=== PATIENT | male | born 1950 | race Caucasian/White ===

== ENCOUNTER 2017-08-17 09:56 | Inpatient (IN) | payer MEDICARE ==
[~2017-08-17] VITALS: Ht 188 cm; Wt 87.8 kg
[~2017-08-17 09:56] MED LIST: COQ-100C5 PO; RED1CAP4 PO
[2017-08-17] MEDS ORDERED: POVIDONE IODINE 5% (ANTISEPSIS KIT) 4 APPLICATIONS EACH NARE PRN (10:30)
[2017-08-17] MEDS ORDERED: SODIUM CHLORID 0.9% 500 ML IV PRN (10:30)
[2017-08-17] MEDS ORDERED: CHLORHEXIDINE GLUCONATE 2 % 1 PACK (2 CLOTHS) TOPICAL PRN (10:30)
[2017-08-17] MEDS ORDERED: INSULIN HUMAN REGULAR 1,000 UNITS/10 ML VIAL SQ PRN (10:30)
[2017-08-17] MEDS ORDERED: ceFAZolin 2 GM PREMIX 50 ML IV SCH (10:30)
[2017-08-17] MEDS ORDERED: METOPROLOL TARTRATE 25 MG TAB PO PRN (10:30)
[2017-08-17] MEDS ORDERED: LACTATED RINGER'S 1000 ML IV PRN (10:30)
[2017-08-17 10:48] LABS: INTERNATIONAL NORMALIZED RATIO 1.1 RATIO
[2017-08-17] MEDS ORDERED: PROPOFOL 200 MG/20 ML AMP IV ONE (12:00)
[2017-08-17] MEDS ORDERED: ROCURONIUM INJ 50 MG/5 ML SYRINGE IV PUSH ONE (12:00)
[2017-08-17] MEDS ORDERED: LIDOCAINE HCL 1% PF 5 ML SYRINGE OTHER ONE (12:00)
[2017-08-17] MEDS ORDERED: GLYCOPYRROLATE 1 MG/5 ML SYRINGE IV PUSH ONE (12:00)
[2017-08-17] MEDS ORDERED: NEOSTIGMINE 5 MG/5 ML SYRINGE IV PUSH ONE (12:00)
[2017-08-17] MEDS ORDERED: VECURONIUM BROMIDE 20 MG VIAL IV ONE (12:00)
[2017-08-17] MEDS ORDERED: NORMOSOL R INJ 1,000 ML IV ONE (12:00)
[2017-08-17] MEDS ORDERED: LACTATED RINGER'S 1000 ML INJ 1,000 ML IV ONE (12:00)
[2017-08-17] MEDS ORDERED: ePHEDrine/NS 25 MG/5 ML SYRINGE IV ONE (12:00)
[2017-08-17] MEDS ORDERED: ONDANSETRON HCL 4 MG/2 ML VIAL IV ONE (12:00)
[2017-08-17] MEDS ORDERED: ceFAZolin INJ 1,000 MG VIAL IV ONE (12:00)
[2017-08-17] MEDS ORDERED: PHENYLEPH/NS 1000 MCG/10 ML SYR IV ONE (12:00)
[2017-08-17] MEDS ORDERED: DEXAMETHASONE SOD PHOS 4 MG/ML VIAL IV ONE (12:00)
[2017-08-17] MEDS ORDERED: ACETAMINOPHEN 1000 MG/100 ML 100 ML IV ONE (14:55)
[2017-08-17] MEDS ORDERED: FAMOTIDINE 20 MG/2 ML VIAL ONE (15:36)
[2017-08-17] MEDS ORDERED: SUGAMMADEX SODIUM 200 MG/2 ML VIAL IV PUSH ONE (18:15)
[2017-08-17] MEDS ORDERED: MIDAZOLAM HCL 2 MG/2 ML VIAL ONE (19:15)
[2017-08-17] MEDS ORDERED: ceFAZolin INJ 1,000 MG VIAL ONE (20:36)
[2017-08-17] MEDS ORDERED: MORPHINE SULFATE 4 MG/ML INJ IV PUSH PRN (21:15)
[2017-08-17] MEDS: DOCUSATE SODIUM 100 MG CAP PO SCH (21:15)
[2017-08-17] MEDS ORDERED: ONDANSETRON HCL 4 MG/2 ML VIAL IV PUSH PRN (21:15)
--- NOTE | 2017-08-17 21:16 | HHI.PR ---
Immediate Post Op Note Procedure Date: Aug 17, 2017 Pre Op Diagnosis: Prostate Cancer Post Op Diagnosis: same Surgeon: Ciaran Chua Jd Edwards Consultant(s): Michael Calixto MD. Procedure: Robotic Assisted Laparoscopic Radical Prostatectomy with Bilateral Pelvic Lymph Node Dissection. Complications: none Specimen(s) removed: Prostate, SVs, Lymph Nodes, posterior margin Estimated blood loss: 250 ml. Anesthesia: General Drains: ANTIONE IVF Patient to: PACU Patient Condition: Ciaran Guzmán MD Aug 17, 2017 21:16
[2017-08-17] MEDS ORDERED: DO NOT ADM ANY ANTICOAGULANT DRUGS PRN (21:45)
[2017-08-17] MEDS ORDERED: MORPHINE SULFATE 4 MG/ML INJ ONE (22:02)
[2017-08-17] MEDS ORDERED: *morphine SULFATE 8 MG/ML PERIprocedure ONLY ONE (22:18)
[2017-08-17 22:22] LABS: AUTOMATED NEUTROPHIL # 12.3 TH/MM3 (1.8-7.7); BASOPHIL % 0.2 % (0.0-2.0); EOSINOPHIL % 0.3 % (0.0-4.0); HEMATOCRIT 45.3 % (39.0-51.0); HEMOGLOBIN 15.3 GM/DL (13.0-17.0); LYMPHOCYTE # 1.1 TH/MM3 (1.0-4.8); MEAN CELL VOLUME 84.3 FL (80.0-100.0); MEAN CORPUSCULAR HEMOGLOBIN 28.4 PG (27.0-34.0); MEAN CORPUSCULAR HGB CONC 33.7 % (32.0-36.0); MEAN PLATELET VOLUME 8.6 FL (7.0-11.0); MONO % 4.5 % (0.0-8.0); MONOCYTE # 0.6 TH/MM3 (0-0.9); PLATELET COUNT 179 TH/MM3 (150-450); RED BLOOD COUNT 5.37 MIL/MM3 (4.50-5.90); RED CELL DISTRIBUTION WIDTH 14.5 % (11.6-17.2); WHITE BLOOD COUNT 14.2 TH/MM3 (4.0-11.0)
[2017-08-17 22:34] LABS: BICARBONATE 25.9 MEQ/L (21.0-32.0); CALCIUM 8.3 MG/DL (8.5-10.1); CREATININE 1.26 MG/DL (0.60-1.30)
[2017-08-17] MEDS: SODIUM CHLOR 0.9% 1000 ML INJ 1,000 ML IV SCH (22:45)
[2017-08-18] VITALS (7 sets, daily range): BP systolic 99–139; BP diastolic 57–88; PULSE 71–111; RESP 16–18; TEMP 96–98.4; O2SAT 94–97
[2017-08-18] MEDS: KETOROLAC TROMETHAMINE 30 MG/ML (IVP) VIAL IV PUSH SCH ×4 (01:14→17:55)
[2017-08-18] MEDS: PANTOPRAZOLE SODIUM 40 MG VIAL IV PUSH SCH ×2 (01:15→21:56)
[2017-08-18] MEDS: SODIUM CHLOR 0.9% 1000 ML INJ 1,000 ML IV SCH ×3 (06:06→17:15)
--- NOTE | 2017-08-18 08:19 | HHI.PR ---
Subjective Patient symptoms today c/o lower abdominal pain, but controlled with meds. Denies N/V/CP/SOB. Denies flatus. Has not been OOB Objective Vital Signs Vital Signs Date Time Temp Pulse Resp B/P (MAP) Pulse Ox O2 Delivery O2 Flow Rate FiO2 08/18/17 08:00 97.9 92 18 105/64 (78) 97 08/18/17 03:35 97.5 101 18 125/79 (94) 95 08/18/17 01:02 96.7 111 18 139/88 (105) 94 08/18/17 00:15 97.9 103 18 155/89 (111) 95 Nasal Cannula 2 08/18/17 00:00 96 14 156/89 (111) 97 Nasal Cannula 2 08/17/17 23:45 93 16 119/63 (81) 99 Nasal Cannula 2 08/17/17 23:30 102 18 156/87 (110) 96 Nasal Cannula 2 08/17/17 23:15 101 14 142/96 (111) 98 Nasal Cannula 2 08/17/17 23:00 98 12 156/89 (111) 100 Nasal Cannula 2 08/17/17 22:45 93 16 158/82 (107) 95 Nasal Cannula 2 08/17/17 22:30 87 14 148/82 (104) 91 Nasal Cannula 2 08/17/17 22:15 91 17 158/81 (106) 100 Nasal Cannula 2 08/17/17 22:00 84 16 137/78 (97) 96 Nasal Cannula 2 08/17/17 21:45 98.6 75 16 118/68 (85) 95 Nasal Cannula 2 08/17/17 10:40 98.3 97 20 169/103 (125) 98 Intake & Output 08/18/17 08/18/17 07:00 19:00 Intake Total 3160 ml Output Total 1190 ml Balance 1970 ml Intake Oral 360 ml IV Total 300 ml Other 2500 ml Output Urine Total 605 ml Drainage Total 285 ml Estimated Blood Loss 300 ml # Bowel Movements 0 Result Diagram: 08/17/17221008/17/172210 Objective Remarks NAD. A/O x 3 CTAB RRR abd soft, appropriate tender, distended. Inc c/d/i Acosta draining dark yellow, urine. ANTIONE sanguinous drainage. EXT NT. No edema. EPC cuffs on and working Medications and IVs Current Medications Medications (Trade) Dose Ordered Sig/Gloria Route Start Time Stop Time Status Last Admin Lactated Ringer's 1,000 ml @ 30 mls/hr Q24H PRN IV 08/17/17 10:30 08/20/17 10:29 08/17/17 10:48 Sodium Chloride 500 ml @ 30 mls/hr [id number] PRN IV 08/17/17 10:30 08/20/17 10:29 (Lopressor) 25 mg CLOTH SECONDS SORTER PRN PO 08/17/17 10:30 08/20/17 10:29 (Betadine 5% Antisepsis Kit) 1 applic CLOTH SECONDS SORTER PRN EACH NARE 08/17/17 10:30 08/20/17 10:29 08/17/17 10:45 (Chlorhexidine 2% Cloth) 3 pack CLOTH SECONDS SORTER PRN TOPICAL 08/17/17 10:30 08/20/17 10:29 08/17/17 10:30 (NovoLIN R INJ) See Protocol Table ... CLOTH SECONDS SORTER PRN SQ 08/17/17 10:30 08/20/17 10:29 Cefazolin Sodium/ Dextrose 50 ml @ 150 mls/hr CLOTH SECONDS SORTER IV 08/17/17 10:30 08/20/17 10:29 08/17/17 16:39 (Colace) 100 mg BID PO 08/17/17 21:15 (Percocet 5-325 Mg) 2 tab Q4H PRN PO 08/17/17 21:15 (Percocet 5-325 Mg) 1 tab Q4H PRN PO 08/17/17 21:15 (Zofran Inj) 4 mg Q6HR PRN IV PUSH 08/17/17 21:15 (Protonix Inj) 40 mg Q24H IV PUSH 08/17/17 23:00 08/18/17 01:15 (Toradol Inj) 30 mg Q6HR IV PUSH 08/18/17 00:00 08/22/17 18:01 08/18/17 06:06 (Morphine Inj) 4 mg Q3H PRN IV PUSH 08/17/17 21:15 Cefazolin Sodium 1000 mg/Sodium Chloride 100 ml @ 200 mls/hr Q8H IV 08/18/17 00:00 08/18/17 08:29 08/18/17 01:14 Sodium Chloride 1,000 ml @ 150 mls/hr Q6H40M IV 08/17/17 21:15 08/18/17 06:06 Miscellaneous Information ALL NURSING DEPARTME... UNSCH PRN .XX 08/17/17 21:45 08/18/17 21:44 Assessment and Plan Assessment and Plan POD #1 s/p Robotic Prostatectomy -Check labs -Monitor UOP. -ANTIONE Creatinine noted. Will repeat in A.M. -OOB today -continue clears. -DVT/GI prophylaxis Ciaran Chua MD Aug 18, 2017 08:19
[2017-08-18] MEDS ORDERED: RED YEAST RICE EXTRACT PO SCH (09:00)
[2017-08-18] MEDS ORDERED: COENZYME Q10 PO SCH (09:00)
[2017-08-18] MEDS: DOCUSATE SODIUM 100 MG CAP PO SCH ×2 (09:00→21:56)
[2017-08-18 09:23] LABS: HEMATOCRIT 42.1 % (39.0-51.0); HEMOGLOBIN 14.5 GM/DL (13.0-17.0); MEAN CELL VOLUME 83.9 FL (80.0-100.0); MEAN CORPUSCULAR HEMOGLOBIN 28.8 PG (27.0-34.0); MEAN CORPUSCULAR HGB CONC 34.4 % (32.0-36.0); MEAN PLATELET VOLUME 8.7 FL (7.0-11.0); PLATELET COUNT 175 TH/MM3 (150-450); RED BLOOD COUNT 5.02 MIL/MM3 (4.50-5.90); RED CELL DISTRIBUTION WIDTH 14.4 % (11.6-17.2); WHITE BLOOD COUNT 10.5 TH/MM3 (4.0-11.0)
[2017-08-18 09:49] LABS: BICARBONATE 25.9 MEQ/L (21.0-32.0); CALCIUM 7.6 MG/DL (8.5-10.1); CREATININE 1.15 MG/DL (0.60-1.30)
--- NOTE | 2017-08-18 14:43 | MP ---
cc: Ciaran Chua MD DATE OF OPERATION: 08/17/2017 PREOPERATIVE DIAGNOSIS: Intermediate Reinaldo 3 + 4 = 7 prostate cancer. POSTOPERATIVE DIAGNOSIS: Intermediate Reinaldo 3 + 4 = 7 prostate cancer. PROCEDURE PERFORMED: Robotic assisted laparoscopic radical prostatectomy with bilateral pelvic lymph node dissection. SURGEON: Ciaran Chua MD LINE MAINTENANCE: Michael Calixto ANESTHESIA: General COMPLICATIONS: None. PREOPERATIVE ANTIBIOTICS: Ancef 2 gm IV DRAINS: 1. ANTIONE drain. 2. A 20 [place] Acosta catheter to gravity drainage. SPECIMENS: 1. Prostate and seminal vesicles. 2. Right obturator lymph nodes. 3. Left obturator lymph nodes. 4. Posterior margin. BLOOD LOSS: 200 mL. FLUIDS: 1500 per crystalloids. DISPOSITION: Stable to recovery. INDICATIONS: The patient is a 67-year-old male with an elevated PSA. He underwent a prostate biopsy which was found to have 3 + 4 = 7 prostate cancer by my partner Dr. Nabor Leonardo. Treatment was discussed and he was referred for a robotic prostatectomy. The patient had a prostate MRI done preoperatively for surgery planning and he was found to have a PI-RADS 5 lesion in left mid and apex in the lateral gland approximately 2.7 cm. Due to these findings he elected to proceed with robotic prostatectomy and bilateral pelvic lymph node dissection. After the risks, benefits and alternatives were explained the patient agreed to the risk of erectile dysfunction, urinary incontinence, elected to proceed and informed consent was obtained. DESCRIPTION OF THE PROCEDURE: The patient was properly identified, brought back to the operating room, laid supine on the operating room table. Appropriate time out was performed under the direction of anesthesiology. The patient was induced under general anesthetic. Preop antibiotics of Ancef 2 gm IV were given within one hour of start of the procedure. The patient was then placed in the dorsolithotomy position and steep Trendelenburg. All pressure points were padded. He was then prepped and draped in normal sterile surgical fashion. A stab incision was made just lateral superior to umbilicus on the patient's right side. A Veress needle was then used to gain pneumoperitoneum. A 12 mm camera port was then carefully placed without any incident into the abdominal cavity. The camera was then used to inspect the abdominal cavity. There was no evidence of any intraabdominal injury or bleeding. At this time 5 other ports were then placed under direct visualization including two 8 mm robotic ports were placed on the patient's left hand side a hand breadth away from each other starting from the camera port in the midline. A 12 mm security assistant port was the placed in the right side two fingerbreadths seuprior to ASIS, an 8 mm robotic port that was placed a handbreadth away from the camera port triangulated between the 8 mm right hand robotic port and the camera port. The was properly positioned and docked. The bladder was then taken down in standard fashion starting on the right hand side by getting into the retropubic space. Left side of the bladder was taken down. The periprostatic fat was then removed and ligated the superficial DBC stitch with electrocautery. At this time I then entered the endopelvics on each side bluntly and carefully dissected up toward the apex of the prostate. In doing so I was able to remove the pelvic musculature off the prostate to delineate the borders of the prostate. There was an accessory obturator vessel on the right side which was ligated with electrocautery. The ____ were taken with cold cut scissors. The DBC stitch was ligated with 0 V-Loc stitch and secured through the pubic symphysis. I then performed the dissection of the anterior bladder neck and entered the urethra. The patient did have a small median lobe. This was carefully dissected out. Both orifices were identified and appeared more posterior in the bladder. Again I developed a plane between the prostate and the bladder through Denonvilliers facia until the seminal vesicles were seen. There was no holding up the bladder. Posterior bladder wall was quite thick. A seminal vesicle was then carefully dissected all the out to the tip. The vas was ligated on each side. The posterior plane was then developed. It was rather stuck and inflamed on the left side near the location corresponding to the tumor on MRI. There is some significant bleeding at these pedicles. Each pedicle was taken with a combination of Hem-o-sonia clips and the robotic vessel sealer as the patient already had a history of erectile dysfunction. I then marched up toward the apex of the prostate, however, due to the quite large size of his prostate, which was approximately 75 gm, made the posterior dissection toward the apex quite difficult. At this point I used electrocautery to go anteriorly and divide the previously ligated DBC stitch. This the anterior portion of the prostate to the urethra. I divided the urethra with a cold cut scissors. The retrourethralis was divided as wall and at this point the inferior portion of the rectum was still stuck on the prostate. I carefully dissected the prostate off retrograde from rectum. The prostate was then placed in the pericolic gutter for later removal. Hemostasis was then achieved in the prostatic fossa. At this time a digital rectal exam was done and the rectum wall seemed thin but there was no obvious rectal injury. A red rubber catheter was then placed in the rectum. 300 mL of sterile water was placed in the prostatic fossa. The air was then irrigated through the red rubber catheter into the rectum. No bubbles were seen. The rectal wall was intact. The fluid was removed. Bilateral pelvic lymph node dissection was done in standard fashion. The obturator nerve was identified on each side. The lymph nodes were then stripped down off the obturator. Each nerve remained intact. These node packets were sent off separately. At this time a watertight anastomosis was done with the urethra and bladder using a double armed 4-0 Stratafix suture. The posterior portion of the urethra was ran first with the posterior portion of the bladder and both ends were met in the middle at 12 o'clock position. A new 20 [place] Acosta catheter was then placed and was visually seen going into the bladder. It was then secured with 20 mL of normal saline. 1 gram of Geo was then used for hemostatic purposes. The bladder was irrigated. No evidence of any leak was seen. At this time the third arm was then removed. A 10 [place] ANTIONE drain was then placed into abdominal cavity. It was secured with a 3-0 nylon. The prostate was then placed in EndoCatch bag and was extracted through the midline incision after extending to approximately 3 cm. It was closed with a running 0 Vicryl. All skin incisions then closed with 4-0 Monocryls. Sponge and needle counts were correct at the end of the case. This concluded the procedure. The patient was extubated and send to recovery room in stable condition and will be transferred to the floor for routine postoperative care. Ciaran Chua MD EMF/rt , 09:29 PM , 11:00 PM
[2017-08-18] MEDS: oxyCODONE/ACETAMINOPHEN 5 MG/325 MG TAB PO PRN (17:54)
[2017-08-19] MEDS: KETOROLAC TROMETHAMINE 30 MG/ML (IVP) VIAL IV PUSH SCH ×2 (00:01→05:36)
[2017-08-19 04:30] VITALS: BP 100/60; PULSE 82; RESP 18; TEMP 97.6; O2SAT 96
[2017-08-19] MEDS: oxyCODONE/ACETAMINOPHEN 5 MG/325 MG TAB PO PRN ×4 (06:24→20:23)
[2017-08-19] MEDS: SODIUM CHLOR 0.9% 1000 ML INJ 1,000 ML IV SCH (07:33)
[2017-08-19 07:51] VITALS: BP 117/67; PULSE 79; RESP 18; TEMP 97.3; O2SAT 94
[2017-08-19] MEDS: DOCUSATE SODIUM 100 MG CAP PO SCH ×2 (09:33→20:22)
[2017-08-19 12:00] VITALS: BP 123/70; PULSE 80; RESP 17; TEMP 97.2; O2SAT 94
--- NOTE | 2017-08-19 13:45 | HHI.PR ---
Subjective Patient symptoms today POD # 2 s/p robotic prostatectomy. No acute events overnight, Pain is controlled, no f/c/n/v, Labs are stable. Ambulating without issues. Diet was advanced to regular and he tolerates it well. Reyes is in place, draining very light pink urine. No new c/o today ANTIONE Cr is normal and ANTIONE drain was removed today. + belching, No flatus yet Objective Vital Signs Vital Signs Date Time Temp Pulse Resp B/P (MAP) Pulse Ox O2 Delivery O2 Flow Rate FiO2 08/19/17 12:17 18 08/19/17 07:51 97.3 79 18 117/67 (84) 94 08/19/17 04:30 97.6 82 18 100/60 (73) 96 08/18/17 23:31 98.3 71 18 99/57 (71) 95 08/18/17 19:30 98.4 82 16 103/62 (76) 96 08/18/17 16:20 96.0 92 18 110/62 (78) 97 Intake & Output 08/19/17 08/19/17 07:00 19:00 Intake Total 720 ml Output Total 1130 ml 30 ml Balance -410 ml -30 ml Intake Oral 720 ml Output Urine Total 1100 ml Drainage Total 30 ml 30 ml # Bowel Movements 0 Result Diagram: 08/18/17 0855 08/18/17 0855 Objective Remarks NAD. A/O x 3 CTAB RRR abd soft, appropriate tender, distended. Inc c/d/i Reyes draining light pink urine Medications and IVs Current Medications Medications (Trade) Dose Ordered Sig/Gloria Route Start Time Stop Time Status Last Admin Lactated Ringer's 1,000 ml @ 30 mls/hr Q24H PRN IV 08/17/17 10:30 08/20/17 10:29 08/17/17 10:48 Sodium Chloride 500 ml @ 30 mls/hr [id number] PRN IV 08/17/17 10:30 08/20/17 10:29 (Lopressor) 25 mg LIQUOR MAKER PRN PO 08/17/17 10:30 08/20/17 10:29 (Betadine 5% Antisepsis Kit) 1 applic LIQUOR MAKER PRN EACH NARE 08/17/17 10:30 08/20/17 10:29 08/17/17 10:45 (Chlorhexidine 2% Cloth) 3 pack LIQUOR MAKER PRN TOPICAL 08/17/17 10:30 08/20/17 10:29 08/17/17 10:30 (NovoLIN R INJ) See Protocol Table ... LIQUOR MAKER PRN SQ 08/17/17 10:30 08/20/17 10:29 Cefazolin Sodium/ Dextrose 50 ml @ 150 mls/hr LIQUOR MAKER IV 08/17/17 10:30 08/20/17 10:29 08/17/17 16:39 (Colace) 100 mg BID PO 08/17/17 21:15 08/19/17 09:33 (Percocet 5-325 Mg) 2 tab Q4H PRN PO 08/17/17 21:15 08/19/17 11:17 (Percocet 5-325 Mg) 1 tab Q4H PRN PO 08/17/17 21:15 08/19/17 06:24 (Zofran Inj) 4 mg Q6HR PRN IV PUSH 08/17/17 21:15 (Protonix Inj) 40 mg Q24H IV PUSH 08/17/17 23:00 08/18/17 21:56 (Morphine Inj) 4 mg Q3H PRN IV PUSH 08/17/17 21:15 Assessment and Plan Assessment and Plan POD #2 s/p Robotic Prostatectomy - Recovering well - Keep reyes Monitor UOP. -ANTIONE removed -continue ambulation and IS - Continue reg diet -DVT/GI prophylaxis - Poss D/C tomorrow Matthew Carter Aug 19, 2017 13:45
[2017-08-19 16:00] VITALS: BP 118/70; PULSE 78; RESP 18; TEMP 98.3; O2SAT 95
[2017-08-19 16:20] VITALS: BP 110/67; PULSE 78; RESP 14; TEMP 97.7; O2SAT 97
[2017-08-19 20:05] VITALS: BP 139/78; PULSE 80; RESP 14; TEMP 98.4; O2SAT 96
[2017-08-19] MEDS: PANTOPRAZOLE SODIUM 40 MG VIAL IV PUSH SCH (22:23)
[2017-08-20 00:20] VITALS: BP 142/83; PULSE 78; RESP 17; TEMP 97.7; O2SAT 97
[2017-08-20] MEDS: oxyCODONE/ACETAMINOPHEN 5 MG/325 MG TAB PO PRN ×3 (05:21→14:17)
[2017-08-20 07:28] VITALS: BP 137/83; PULSE 82; RESP 19; TEMP 96.6; O2SAT 95
[2017-08-20] MEDS: DOCUSATE SODIUM 100 MG CAP PO SCH (08:45)
[2017-08-20 11:21] VITALS: BP 159/78; PULSE 85; RESP 19; TEMP 95.9; O2SAT 95
[2017-08-20] MEDS ORDERED: OXYC1TAB63 PO (12:36)
[2017-08-20] MEDS ORDERED: CIPR-9 PO (12:36)
[2017-08-20] MEDS ORDERED: DOCU1CAP39 PO (12:36)
[2017-08-20] MEDS ORDERED: MIRA3350 PO (12:36)
--- NOTE | 2017-08-20 12:40 | HHI.DS ---
Discharge Summary Admission Date Aug 18, 2017 at 00:58 Discharge Date: Aug 20, 2017 Admitting Diagnosis Prostate Cancer Procedures Robotic Radical Prostatectomy with Lymph Node Dissection CBC/BMP: 08/18/17 0855 08/18/17 0855 Significant Findings Laboratory Tests Test 08/17/17 22:11 08/18/17 04:40 08/18/17 08:55 08/19/17 05:40 White Blood Count 14.2 TH/MM3 (4.0-11.0) Neutrophils (%) (Auto) 87.0 % (16.0-70.0) Lymphocytes (%) (Auto) 8.0 % (9.0-44.0) Neutrophils # (Auto) 12.3 TH/MM3 (1.8-7.7) Random Glucose 141 MG/DL (74-106) 108 MG/DL (74-106) Calcium Level 8.3 MG/DL (8.5-10.1) 7.6 MG/DL (8.5-10.1) Estimat Glomerular Filtration Rate 57 ML/MIN (>89) 64 ML/MIN (>89) Hospital Course 67 yo male h/o CaP was admitted following a Robotic Prostatectomy. He had a mild post operative ileus. His hemoglobin was stable. His ANTIONE drain had low output. It was serum so it was removed. He was tolerating a regular diet and POd # 2 and starting passing flatus. He was discharged home with catheter on POD #3. Pt Condition on Discharge: Fair Discharge Disposition: Discharge Home Discharge Instructions DIET: Follow Instructions for: Heart Healthy Diet Activities you can perform: Full Weight Bearing, Shower Only-No Bath Additional Activity Instructio: No heavylifting greater than 15 lbs x 4 weeks No strenuous activity x 4 weeks No driving x 2 weeks New Medications: Ciprofloxacin (Cipro) 500 Mg Tab 500 MG PO BID for Infection for 3 Days, #6 TAB 0 Refills Polyethylene Glycol 3350 Powder (Miralax Powder) 17 Gm Powd 17 GM PO DAILY PRN for CONSTIPATION for 5 Days, #1 CAN 0 Refills Mix and dissolve one measuring cap-ful (17 grams) in water or juice. Docusate Sodium (Dok) 100 Mg Cap 100 MG PO BID PRN for CONSTIPATION for 10 Days, #20 CAP Oxycodone HCl/Acetaminophen (Oxycodone-Acetaminophen 5-325) 5 Mg-325 Mg Tablet 2 TAB PO Q4H PRN for PAIN SCALE 7 TO 10 for 7 Days, #84 TAB Continued Medications: Coenzyme Q10 (Ubidecarenone) (Coq-10 Tr) 100 Mg Cap 1 TAB PO DAILY Red Yeast Rice Extract (Red Yeast Rice) 600 Mg Cap 1 CAP PO DAILY Ciaran Chua MD Aug 20, 2017 12:40
--- NOTE | 2017-08-20 12:41 | HHI.PR ---
Subjective Patient symptoms today feel better. pain controlled. Passing flatus. Denies CP/SOB. tolerating regular diet. Ambulating. Wants to go home. Objective Vital Signs Vital Signs Date Time Temp Pulse Resp B/P (MAP) Pulse Ox O2 Delivery O2 Flow Rate FiO2 08/20/17 11:21 95.9 85 19 159/78 (105) 95 08/20/17 07:28 96.6 82 19 137/83 (101) 95 08/20/17 00:20 97.7 78 17 142/83 (102) 97 08/19/17 20:05 98.4 80 14 139/78 (98) 96 08/19/17 17:07 18 08/19/17 16:20 97.7 78 14 110/67 (81) 97 08/19/17 16:00 98.3 78 18 118/70 (86) 95 Intake & Output 08/20/17 08/20/17 07:00 19:00 Intake Total 600 ml Output Total 1500 ml Balance -900 ml Intake Oral 600 ml Output Urine Total 1500 ml # Bowel Movements 0 Result Diagram: 08/18/17 0855 08/18/17 0855 Objective Remarks NAD. A/O x 3 CTAB RRR abd soft, appropriate tender, distended. Inc c/d/i Reyes draining light pink urine EXT NT. some mild right foot edema, pitting in nature. Medications and IVs Current Medications Medications (Trade) Dose Ordered Sig/Gloria Route Start Time Stop Time Status Last Admin (Colace) 100 mg BID PO 08/17/17 21:15 08/20/17 08:45 (Percocet 5-325 Mg) 2 tab Q4H PRN PO 08/17/17 21:15 08/20/17 09:23 (Percocet 5-325 Mg) 1 tab Q4H PRN PO 08/17/17 21:15 08/19/17 06:24 (Zofran Inj) 4 mg Q6HR PRN IV PUSH 08/17/17 21:15 (Protonix Inj) 40 mg Q24H IV PUSH 08/17/17 23:00 08/19/17 22:23 (Morphine Inj) 4 mg Q3H PRN IV PUSH 08/17/17 21:15 Assessment and Plan Assessment and Plan POD #3 s/p Robotic Prostatectomy -doing well -D/C home today with reyes -F/U in 7-10 days with cystogram prior. Office to arrange. Ciaran Chua MD Aug 20, 2017 12:41
== END 2017-08-20 15:42 | disposition home or self-care (01) | DRG 707 ==
LOC: HSDC 09:56 → N06B 10:19 → EDSTATUS 12:30 → N06B 08-18 00:58 → UNDOADMIN 08-18 00:58 → UNDODISIN 08-20 15:42
PROVIDERS: ADMIT Urology; ATTEND Urology
PROC: 07BC4ZZ Excision of Pelvis Lymphatic, Percutaneous Endoscopic Approach (ICD-10-PCS; 2017-08-17)
PROC: 8E0W4CZ Robotic Assisted Procedure of Trunk Region, Percutaneous Endoscopic Approach (ICD-10-PCS; 2017-08-17)
PROC: 0VT04ZZ Resection of Prostate, Percutaneous Endoscopic Approach (ICD-10-PCS; principal; 2017-08-17 15:54)
DX: C61 Malignant neoplasm of prostate (principal); K56.7 Ileus, unspecified; E78.5 Hyperlipidemia, unspecified; K21.9 Gastro-esophageal reflux disease without esophagitis
CPT/HCPCS: 80048; 82570; 85025; 85027; 85610; 86850; 86900; 86901; 86920; 88305; 88307; 88309; 94150; C9113; J0131; J0690; J1100; J1885; J2250; J2270; J2370; J2405; J2710; J3010; J7030; J7120